=== PATIENT | male | born 1985 | race Caucasian/White ===

== ENCOUNTER 2016-12-11 22:10 | Emergency (ER) | payer OTHER, MEDICAID ==
[~2016-12-11 22:10] MED LIST: INSULIN GLARGINE 100 UNITS/ML SYRINGE SC ONE
[2016-12-11 22:23] VITALS: TEMP 98.2
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
[2016-12-11] MEDS ORDERED: NS 1,000 ML IV ONE (22:35)
[2016-12-11] MEDS ORDERED: VANCOMYCIN 1.5 GM in D5W 250 ML IV ONE (22:35)
[2016-12-11 23:11] LABS: % IMMATURE GRANULYOCYTES 0.4 % (0.0-1.1); ABSOLUTE IMMATURE GRANULOCYTES 0.04 10^3/uL (0.00-0.10); ADD DIFF? NO; ADD MORPH? NO; ADD SCAN? NO; ATYPICAL LYMPHOCYTE FLAG 40 (0-99); FRAGMENT RBC FLAG 0 (0-99); HEMATOCRIT 27.5 % (40.0-51.0); HEMOGLOBIN 8.8 g/dL (13.7-17.5); LEFT SHIFT FLG 0 (0-99); LIPEMIA HEMOLYSIS FLAG 80 (0-99); MEAN CELL HEMOGLOBIN 26.9 pg (27.9-34.1); MEAN CELL VOLUME 84.1 fL (81.5-99.8); MEAN PLATELET VOLUME 9.6 fL (8.7-11.7); PLATELET CLUMPS FLAG 10 (0-99); PLATELET COUNT 526 10^3/uL (150-400); RED BLOOD CELL COUNT 3.27 10^6/uL (4.40-6.38); RED CELL DISTRIBUTION WIDTH 15.7 % (11.5-15.2)
[2016-12-11 23:28] LABS: ALANINE AMINOTRANSFERASE 190 IU/L (21-72); ALBUMIN 3.1 g/dL (3.5-5.0); ALKALINE PHOSPHATASE 248 IU/L (38-126); ANION GAP 10 mEq/L (8-16); ASPARTATE AMINOTRANSFERASE 248 IU/L (17-59); CALCIUM 8.9 mg/dL (8.5-10.4); CARBON DIOXIDE 22 mEq/l (22-31); CHLORIDE 100 mEq/L (97-110); CREATININE 0.7 mg/dL (0.7-1.3); GLOMERULAR FILTRATION RATE > 60; GLUCOSE 427 mg/dL (70-100); POTASSIUM 4.1 mEq/L (3.5-5.2); SODIUM 132 mEq/L (134-144); TOTAL PROTEIN 6.9 g/dL (6.3-8.2)
[2016-12-11 23:44] LABS: BILIRUBIN,TOTAL 0.5 mg/dL (0.1-1.4)
[2016-12-11 23:54] VITALS: PULSE 82; RESP 14
[2016-12-12] MEDS ORDERED: CEPHALEXIN 500 MG CAP PO ONE (01:44)
[2016-12-12] MEDS ORDERED: SULFAMETHOX/TMP 800/160 MG 1 TAB PO ONE (01:45)
[2016-12-12 02:01] VITALS: BP 115/79; O2SAT 96
== END 2016-12-12 02:05 | disposition home or self-care (01) ==
LOC: EDUNIT# → EDBD
DX: L03.115 Cellulitis of right lower limb (principal); L03.116 Cellulitis of left lower limb; E10.65 Type 1 diabetes mellitus with hyperglycemia; F17.200 Nicotine dependence, unspecified, uncomplicated; Z02.89 Encounter for other administrative examinations
CPT/HCPCS: 96365; J1815; J3370

== ENCOUNTER 2017-06-03 20:29 | Emergency (ER) | payer MEDICAID, OTHER ==
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
[2017-06-03 22:44] VITALS: BP 140/77; PULSE 98; RESP 18; TEMP 98.4; O2SAT 99
== END 2017-06-03 22:47 | disposition home or self-care (01) ==
DX: S80.02XA Contusion of left knee, initial encounter (principal); F17.200 Nicotine dependence, unspecified, uncomplicated; Z79.4 Long term (current) use of insulin; V23.0XXA Motorcycle driver injured in collision with car, pick-up truck or van in nontraffic accident, initial encounter; Y93.55 Activity, bike riding

== ENCOUNTER → 2017-09-30 | Outpatient (CLI) | payer MEDICAID | LOC: BMCIMAGING 08:00 | PROVIDERS: ATTEND Nurse Practitioner | DX: R16.0 Hepatomegaly, not elsewhere classified (principal); R93.3 Abnormal findings on diagnostic imaging of other parts of digestive tract; B18.2 Chronic viral hepatitis C; E10.9 Type 1 diabetes mellitus without complications; F11.21 Opioid dependence, in remission; Z20.2 Contact with and (suspected) exposure to infections with a predominantly sexual mode of transmission ==

== ENCOUNTER 2017-10-13 20:48 | Emergency (ER) | payer MEDICAID ==
--- NOTE | 2017-10-13 21:36 | EDPHY ---
H & P Stated Complaint: low platelet count sent by PCP Time Seen by Provider: 10/13/17 21:35 HPI/ROS: HPI: This is a 32-year-old male who presents with Chief Complaint: Low platelet count per primary care provider Location:body Quality: Low platelet count Duration: Today Signs and Symptoms: No bleeding of gums, no easy bruising, no hematemesis, no blood in stool Timing: Acute Severity: Mild Context: Patient is a recovered IV heroin user and cocaine user presents with complaints of abnormal lab values that were drawn today. He reports that he was diagnosed with hepatitis-C in but recently only started treatment approximately 4 weeks ago. He is being followed by the [facility] as well as Infectious Disease. He is only been taking Mavyret for 4 weeks. He had labs drawn 1 month ago and had no abnormalities and had a normal politely declined at that time. Patient reports that he gives himself insulin as he is a type 1 diabetic. Reports that his blood sugars have been controlled. He reports that he feels at his baseline. He denies any bleeding is gums/easy bruising/blood in his stool. Modifying Factors: None Comment: ROS: see HPI Constitutional: No fever, no chills, no weight loss Eyes: No blurred vision Respiratory: No shortness of breath, no cough Cardiovascular: No chest pain Gastrointestinal: No nausea, no vomiting, no diarrhea Genitourinary: No dysuria Extremities: No myalgias Neurologic: No weakness, no numbness Skin: No rashes Hematologic: No bruising, no bleeding MEDICAL/SURGICAL/SOCIAL HISTORY: Medical/surgical history: Lt hand tendon cyst removed, DRUG ABUSE (IM and skin pops), PANCREATITIS; abscess; T1DM; heroin abuse and cocaine abuse IVDU Social history: Family history noncontributory. CONSTITUTIONAL: Polite and cooperative, adult white male, awake and alert, no obvious distress HEENT: Atraumatic and normocephalic, PERRL, EOMI. Nares patent; no rhinorrhea; no nasal mucosal edema. Tympanic membranes clear. Oropharynx clear, no petechiae, no exudate and moist pink mucosa. Airway patent. No lymphadenopathy. No meningismus. Cardiovascular: Normal S1/S2, regular rate, regular rhythm, without murmur rub or gallop. PULMONARY/CHEST: Symmetrical and nontender. Clear to auscultation bilaterally. Good air movement. No accessory muscle usage. ABDOMEN: Soft, nondistended, nontender, no rebound, no guarding, no peritoneal signs, no masses or organomegaly. No CVAT. EXTREMITIES: 2/2 pulses, strength 5/5, no deformities, no clubbing, no cyanosis or edema. NEUROLOGICAL: no focal neuro deficits. GCS 15. SKIN: Warm and dry, no erythema. no rash. Good capillary refill. Source: Patient, Old records Exam Limitations: No limitations - Personal History Current Tetanus/Diphtheria Vaccine: Yes Tetanus Vaccine Date: 2014 - Medical/Surgical History Hx Asthma: No Hx Chronic Respiratory Disease: No Hx Diabetes: Yes Hx Cardiac Disease: No Hx Renal Disease: No Hx Cirrhosis: No Hx Alcoholism: No Hx HIV/AIDS: No Hx Splenectomy or Spleen Trauma: No Other PMH: Lt hand tendon cyst removed, DRUG ABUSE (IM ans skin pops), PANCREATITIS; abcess. T1DM; heroin abuse and cocaine abuse IVDU - Social History Smoking Status: Current every day smoker Constitutional: Initial Vital Signs Temperature (C) 36.6 C 10/13/17 20:50 Heart Rate 95 10/13/17 20:50 Respiratory Rate 18 10/13/17 20:50 Blood Pressure 162/100 H 10/13/17 20:50 O2 Sat (%) 97 10/13/17 20:50 O2 Delivery Mode Room Air Allergies/Adverse Reactions: erythromycin base [Erythromycin Base] Allergy (Intermediate, Verified 11/29/15 17:37) Home Medications: Medication Instructions Recorded Insulin Detemir [Levemir] 30 unit SQ BID #0 ml 12/05/14 Glecaprevir/Pibrentasvir 10/13/17 novoLOG 10/13/17 Medical Decision Making ED Course/Re-evaluation: Vital signs reviewed and stable upon arrival. No active signs of bleeding. Labs drawn. Notified by labs that blood sample clotted. Labs redrawn. Notified by labs that blood sample clot. Labs redrawn. 2324: Labs reviewed. Platelet Count 287 K. No signs of leukocytosis/anemia/ARY /electrolyte imbalance/coagulopathy. Reassurance provided to patient. This patient was seen under the supervision of my secondary supervising physician. I evaluated care for this patient independently. Discussed this patient with Dr. Goldstein who did not see the patient. Differential Diagnosis: Differential diagnosis includes but is not limited to abnormal lab value, idiopathic thrombocytopenia, TTP, DIC, medication side effect. - Data Points Laboratory Results: Laboratory Results 10/13/17 23:15 10/13/17 21:21 10/13/17 10/13/17 10/13/17 23:15 22:38 22:24 WBC 9.75 10^3/uL H 10^3/uL TNP (3.80-9.50) RBC 5.18 10^6/uL 10^6/uL TNP (4.40-6.38) Hgb 15.1 g/dL g/dL TNP (13.7-17.5) Hct 44.0 % % TNP (40.0-51.0) MCV 84.9 fL fL TNP (81.5-99.8) MCH 29.2 pg pg TNP (27.9-34.1) MCHC 34.3 g/dL g/dL TNP (32.4-36.7) RDW 13.5 % % TNP (11.5-15.2) Plt Count 287 10^3/uL 10^3/uL TNP (150-400) MPV 11.0 fL fL TNP (8.7-11.7) Neut % (Auto) 59.3 % % TNP (39.3-74.2) Lymph % (Auto) 31.6 % % TNP (15.0-45.0) [place] % (Auto) 7.7 % % TNP (4.5-13.0) Eos % (Auto) 0.6 % % TNP (0.6-7.6) Baso % (Auto) 0.6 % % TNP (0.3-1.7) Nucleat RBC Rel Count 0.0 % % TNP (0.0-0.2) Absolute Neuts (auto) 5.78 10^3/uL 10^3/uL TNP (1.70-6.50) Absolute Lymphs (auto) 3.08 10^3/uL H 10^3/uL TNP (1.00-3.00) Absolute Monos (auto) 0.75 10^3/uL 10^3/uL TNP (0.30-0.80) Absolute Eos (auto) 0.06 10^3/uL 10^3/uL TNP (0.03-0.40) Absolute Basos (auto) 0.06 10^3/uL 10^3/uL TNP (0.02-0.10) Absolute Nucleated RBC 0.00 10^3/uL 10^3/uL TNP (0-0.01) Immature Gran % 0.2 % % TNP (0.0-1.1) Immature Gran # 0.02 10^3/uL 10^3/uL TNP (0.00-0.10) PT 13.1 SEC SEC (12.0-15.0) INR 0.97 (0.83-1.16) APTT 25.2 SEC SEC (23.0-38.0) Sodium Potassium Chloride Carbon Dioxide Anion Gap BUN Creatinine Estimated GFR Glucose Calcium 10/13/17 10/13/17 10/13/17 21:21 21:21 21:21 WBC REJ RBC REJ Hgb REJ Hct REJ MCV REJ MCH REJ MCHC REJ RDW REJ Plt Count REJ MPV REJ Neut % (Auto) REJ Lymph % (Auto) REJ [place] % (Auto) REJ Eos % (Auto) REJ Baso % (Auto) REJ Nucleat RBC Rel Count REJ Absolute Neuts (auto) REJ Absolute Lymphs (auto) REJ Absolute Monos (auto) REJ Absolute Eos (auto) REJ Absolute Basos (auto) REJ Absolute Nucleated RBC REJ Immature Gran % REJ Immature Gran # REJ PT TNP INR TNP APTT TNP Sodium 140 mEq/L mEq/L (135-145) Potassium 4.3 mEq/L mEq/L (3.3-5.0) Chloride 104 mEq/L mEq/L (97-110) Carbon Dioxide 20 mEq/l L mEq/l (22-31) Anion Gap 16 mEq/L mEq/L (8-16) BUN 14 mg/dL mg/dL (7-23) Creatinine 0.8 mg/dL mg/dL (0.7-1.3) Estimated GFR > 60 Glucose 52 mg/dL L mg/dL (70-100) Calcium 9.7 mg/dL mg/dL (8.5-10.4) Departure - Departure Disposition: Home, Routine, Self-Care Clinical Impression: Suspected condition not found Condition: Good Instructions: Hepatitis C (ED) Additional Instructions: Platelet count today is 287,000. Referrals: Oseas Sheikh MD [Primary Care Provider] - As per Instructions
[2017-10-13 22:58] LABS: INR 0.97 (0.83-1.16); PROTIME(PATIENT) 13.1 SEC (12.0-15.0)
[2017-10-13 23:22] LABS: PLATELET COUNT 287 10^3/uL (150-400)
[2017-10-13 23:43] VITALS: BP 150/80
== END 2017-10-13 23:38 | disposition home or self-care (01) ==
DX: Z03.89 Encounter for observation for other suspected diseases and conditions ruled out (principal); E10.9 Type 1 diabetes mellitus without complications; F17.200 Nicotine dependence, unspecified, uncomplicated